=== PATIENT | female | born 1955 | race Caucasian/White ===

== ENCOUNTER 2020-06-11 02:42 | Outpatient (CLI) | payer MEDICARE, SELFPAY ==
[2020-06-11 21:22] LABS: SARS-CoV-2 RNA PCR Negative
== END 2020-06-11 02:43 | disposition home or self-care (01) ==
LOC: ANHCOVIDDT 02:43
PROVIDERS: PCP Family Medicine; Visit Provider Internal Medicine Gastroenterology
DX: Z01.818 Encounter for other preprocedural examination (principal); Z20.828 Contact with and (suspected) exposure to other viral communicable diseases
CPT/HCPCS: 87635; C9803; U0003

== ENCOUNTER 2020-06-14 01:17 | Day surgery (SDC) | payer MEDICARE, SELFPAY ==
[2020-06-06 14:32] VITALS: BMI 25.9
[2020-06-14 09:52] VITALS: BP 144/60; PULSE 93; RESP 18; TEMP 36.7; O2SAT 100
[2020-06-14] MEDS: LACTATED RINGERS 1,000 ML 150 ML IV CONT (10:02)
--- NOTE | 2020-06-14 10:09 | WPDGICN ---
Assessment and Plan Assessment and plan (1) Family history of colonic polyps: Code(s): Z83.71 - Family history of colonic polyps Status: Acute Assessment and Plan: Patient has a family history of colon polyps in both father and brother. Three grandparents have had colon cancer. Plan is for surveillance colonoscopy at 5 year intervals. High-fiber diet is advised. GI Consult Note Consult date/time: 06/14/20 10:09 HPI: Genesis Gonzalez is a 65 year old female Presents for screening colonoscopy. Patient's family history is significant that her father and brother both have had colon polyps. 3 grandparents have had colon cancer. Patient states that her own weight appetite bowel movements are normal. She does well with fiber in her diet. She has on occasion had flare-ups of her hemorrhoids. This typically associated with hard stools. Patient denies any weight loss. Denies any significant abdominal pain. Review of Systems Review of Systems: All systems reviewed & are unremarkable except as noted in HPI and below PMFSH Social History Social History Smoking status: Never smoker Alcohol intake: current Drinks per week: 1 Substance use: never Substance use type: does not use Living arrangements: with family Spiritual care concerns: No Meds Home Medications and Allergies Home Medications Medication Instructions Recorded Confirmed Type latanoprost 1 drp OPHTHALMIC (EYE) DAILY 06/06/20 06/06/20 History meloxicam 7.5 mg PO DAILY 06/06/20 06/06/20 History valacyclovir 500 mg PO DAILY 06/06/20 06/06/20 History Allergies Allergy/AdvReac Type Severity Reaction Status Date / Time No Known Allergies Allergy Verified 06/14/20 09:50 Vital Signs Vital Signs - 24 hr 06/14/20 09:52 Temperature 98.1 F Pulse Rate 93 Respiratory Rate 18 Blood Pressure 144/60 H Pulse Oximetry 100 Exam Narrative: Exam Narrative: Physical exam reveals Vital Signs to be stable. HEENT exam unremarkable. Lungs are clear to auscultation and percussion. Heart is without murmur or extra sounds. Abdominal exam bowel sounds are present soft nontender with no organomegaly. Digital external rectal exam normal.
--- NOTE | 2020-06-14 10:32 | P.PNAN_ITS ---
Anes - Initial Pre Proc Eval Procedure: Operation Date: 06/14/20 11:00 Proposed Procedures p Screening Colonoscopy - aZire Doll MD Date/Time: 06/14/20 10:32 Surgeon: Zaire Doll MD Pre Op Diagnosis: fm hx colon polyps Patient Data Age: 65 Gender: F Height: 5 ft 6 in Weight: 52.6 kg Last Vital Signs Temp 98.1 F 06/14/20 09:52 Pulse 93 06/14/20 09:52 Resp 18 06/14/20 09:52 BP 144/60 H 06/14/20 09:52 Pulse Ox 100 06/14/20 09:52 Allergies Allergy/AdvReac Type Severity Reaction Status Date / Time No Known Allergies Allergy Verified 06/14/20 09:50 Home Medications Medication Instructions Recorded Confirmed Type latanoprost 1 drp OPHTHALMIC (EYE) DAILY 06/06/20 06/06/20 History meloxicam 7.5 mg PO DAILY 06/06/20 06/06/20 History valacyclovir 500 mg PO DAILY 06/06/20 06/06/20 History Patient hx anesthesia problems: none Family hx anesthesia problems: none [facility] [place] Past Medical History Medical History (Updated 06/14/20 @ 10:31 by oMi Valdze MD) Healthy adult Social History Social History Smoking status: Never smoker Alcohol intake: current Drinks per week: 1 Substance use: never Substance use type: does not use Living arrangements: with family Spiritual care concerns: No Anes - Eval Final PreProcedure Day of Procedure 06/14/20 10:32 Patient weight: normal Heart: regular rate and rhythm Lungs: clear to auscultation Airway: Mallampati scale class II Neurological: alert and oriented Last oral intake: >/= 8 hours ASA classification: II Emergent: no Anesthetic plan: proceed Anesthesia type and monitoring: general GIVS and standard monitoring Informed Consent: The patient's anesthetic plan and its attendant risks and benefits were discussed with the patient/family/POA. Questions were solicited and answers provided to the satisfaction of the patient/family/POA.
[2020-06-14 11:10] VITALS: BP 116/63; PULSE 100; RESP 18; O2SAT 100
[2020-06-14 11:20] VITALS: BP 138/73; PULSE 62; RESP 18; O2SAT 96
[2020-06-14 11:30] VITALS: BP 122/65; PULSE 71; RESP 18; O2SAT 100
== END 2020-06-14 11:34 | disposition home or self-care (01) ==
PROVIDERS: PCP Family Medicine; Visit Provider Internal Medicine Gastroenterology
PROC: 0DJD8ZZ Inspection of Lower Intestinal Tract, Via Natural or Artificial Opening Endoscopic (ICD-10-PCS; CPT 45378; principal; 2020-06-14 11:00)
DX: Z12.11 Encounter for screening for malignant neoplasm of colon (principal); K64.8 Other hemorrhoids; Z83.71 Family history of colonic polyps; Z80.0 Family history of malignant neoplasm of digestive organs
CPT/HCPCS: G0105; J2704; J7120